=== PATIENT | female | born 1975 ===

== ENCOUNTER 2021-04-05 22:36 | Emergency (ER) | payer OTHER ==
[~2021-04-05] VITALS: Ht 154.9 cm; Wt 113.4 kg
[2021-04-06] MEDS ORDERED: ONDA4 PO (00:06)
[2021-04-06] MEDS ORDERED: Percocet 5-3251 EACH PO (00:06)
== END 2021-04-06 00:40 | disposition home or self-care (01) ==
LOC: ER 22:36
DX: S82.442A Displaced spiral fracture of shaft of left fibula, initial encounter for closed fracture (principal); W10.9XXA Fall (on) (from) unspecified stairs and steps, initial encounter
CPT/HCPCS: 29505; 73590; 73600; 96374; 96375; 96376; 99283-25; A9270; J2270; J2405